=== PATIENT | male | born 1955 | race Caucasian/White ===

== ENCOUNTER 2020-05-09 09:05 | Emergency (ER) | payer OTHER, SELFPAY ==
--- NOTE | ~2020-05-09 | XR_ITS ---
EXAMINATION: XR wrist LT min 3V DATE: 05/09/2020 09:35 INDICATION: Bilateral wrist pain post fall TECHNIQUE: Posteroanterior, ulnar deviation, oblique, and lateral views of the left wrist were obtain ed. COMPARISON: none FINDINGS: Old healed distal left radial fracture with volar T plate and screw fixation. There is mild residual widening of the distal radioulnar joint. 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 No acute fracture. There is increased scapholunate angle consistent wit h dorsal intercalated segment instability (DISI). Mild chondrocalcinosis in the region of the triangu lar fibrocartilage complex. 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 Mild osteoa rthritis at the midcarpal, triscaphe and first carpal metacarpal joints. There is subtle dystrophic c alcification in the soft tissues volar to the left wrist and carpus there is asymmetric soft tissue s welling. IMPRESSION: 1. Old healed internally fixed distal left radial fracture and chronic nonunited ulnar styloid avulsi on fracture. No acute osseous abnormality. 2. 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 3. 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 Reviewed, dictated and finalized at location A. IMPRESSION: 1. Old healed internally fixed distal left radial fracture and chronic nonunite d ulnar styloid avulsion fracture. No acute osseous abnormality. 2. Increased scapholunate angle consistent with dorsal intercalated segment ins tability (DISI) and likely scapholunate ligament insufficiency. 3. 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
--- NOTE | ~2020-05-09 | XR_ITS ---
EXAMINATION: XR wrist RT min 3V DATE: 05/09/2020 09:34 INDICATION: Right wrist pain TECHNIQUE: Posteroanterior, ulnar deviation, oblique, and lateral views of the right wrist were obtai annika. COMPARISON: none FINDINGS: Bone alignment is normal. No acute fracture. Osseous excrescence at the dorsal aspect of the proximal carpal row which appears to arise from the lunate which could be either developmental or sequela of old healed fracture. There appears to be a subtle loose osteochondral body at the dorsal aspect of th e midcarpal joint on the lateral projection. Mild chondrocalcinosis at the ulnar side of the wrist martell int. Mild osteoarthritis at the midcarpal, triscaphe and first carpal metacarpal joints. IMPRESSION: 1. No acute osseous abnormality. 2. Suggestion of an old healed fracture of the dorsal aspect of the lunate. 3. Chondrocalcinosis and mild polyarticular osteoarthritis at the carpus Reviewed, dictated and finalized at location A.
--- NOTE | 2020-05-09 09:14 | ED.GENADULT ---
HPI - General Adult General Chief complaint: Extremity Injury, Upper Stated complaint: r/l wrist pain Time Seen by Provider: 05/09/20 09:14 Source: patient Mode of arrival: ambulatory Limitations: no limitations History of Present Illness HPI narrative: 64-year-old male patient presents to the [facility] with complaints of bilateral wrist pain for the past 3 days. Patient states on Thursday he tripped over his kids the bowen falling forward and using his hands outstretched to break his fall. Patient states he has fractured his left wrist about 15 years ago and did require surgery at that time. Patient denies taking anything for pain. Patient states when he is resting he has no pain however today when he went to go grab the coffee pot he noticed that he had some pain to the right wrist area. Patient denies any numbness or tingling to the fingers. Related Data Home Medications Medication Instructions Recorded Confirmed Unable to Obtain Home Medications 05/09/20 05/09/20 Allergies Allergy/AdvReac Type Severity Reaction Status Date / Time No Known Allergies Allergy Verified 05/09/20 09:17 Review of Systems Review of Systems: Narrative: CONSTITUTIONAL: Denies fever, chills, or sweats. EYES: Denies visual changes, redness, or discharge. ENT: Denies rhinorrhea, congestion, sore throat, or otalgia. CARDIOVASCULAR: Denies chest pain, palpitations, or edema. RESPIRATORY: Denies cough or dyspnea. GASTROINTESTINAL: Denies abdominal pain, nausea, vomiting, or diarrhea. GENITOURINARY: Denies dysuria or hematuria. SKIN: Denies rash or itching. MUSCULOSKELETAL: Denies back pain, joint pain, or myalgia. Positive bilateral wrist pain x3 days NEUROLOGIC: Denies headache, numbness, or weakness. PSYCHIATRIC: Denies anxiety or depression. COUNTS INCLUDE 234 BEDS AT THE [facility] Past Medical History Medical History (Updated 05/09/20 @ 09:50 by PRASANNA Fry) Arthritis Fractures Left wrist requiring surgery Social History Social History Gender identity (if verbalized by the patient): Male Comments At the time of my signature I agree with nursing past medical history, surgical, social, and family history. There is no relevant family history pertinent to the presenting complaint. Exam Narrative: Exam Narrative: GENERAL: Well-appearing, well-nourished, and in no acute distress. HEAD: Normocephalic, atraumatic. EYES: PERRLA and EOMI. ENT: Nares clear, no rhinorrhea or epistaxis. Mucous membranes moist. NECK: Supple. No lymphadenopathy CHEST: Clear to auscultation. No respiratory distress. HEART: Regular rate and rhythm. No murmur heard. Normal peripheral pulses. ABDOMEN: Soft, nontender, nondistended, normal active bowel sounds. EXTREMITIES: The R and L wrist is without obvious asymmetry or deformity when compared to the R and L wrist. Patient does have a little bit of bruising to the anterior side of the left wrist. Patient does have an old surgical wound noted and there is some swelling noted to the left wrist but unknown if that is chronic. Patient does have limited range of motion with flexion to the left wrist but states that that is not necessarily new due to his old injury. No overlying erythema or warmth. No bony crepitus or focal area of TTP. No scaphoid fullness or tenderness to direct palpation or axial load. Normal flex/extension of right wrist, normal bilateral ulnar/radial deviation. Motor/sensory function of ulnar, radial, median nerves intact. Ulnar and radial pulses intact. Negaitve Phalen's/Tinel's sign. Negative Cayla test. SKIN: Warm, dry, no rash. Patient does have a small wound noted to the auricle portion of the left ear. Does appear to be a skin tear. NEURO: No focal deficits. Alert and oriented x3. Course Reevaluation(s) Reevaluation #1: Reevaluated patient and notified him that the x-rays did not show any new fractures to either one of the wrist at this time. Discussed with
[2020-05-09 09:23] VITALS: BP 174/76; PULSE 75; RESP 18; TEMP 35.9; O2SAT 100
[2020-05-09] MEDS: TETANUS,DIPHTHERIA,AC PERTUSSIS ADULT (0.5 ML) BOOSTRIX IM (09:46)
== END 2020-05-09 09:52 | disposition home or self-care (01) ==
PROVIDERS: Emergency Provider Nurse Practitioner Family
DX: S63.502A Unspecified sprain of left wrist, initial encounter (principal); W03.XXXA Other fall on same level due to collision with another person, initial encounter; S63.501A Unspecified sprain of right wrist, initial encounter; S81.812A Laceration without foreign body, left lower leg, initial encounter; Z23 Encounter for immunization; M19.90 Unspecified osteoarthritis, unspecified site
CPT/HCPCS: 73110; 90471; 90715; 99214; G0463

== ENCOUNTER 2020-09-15 16:57 | Emergency (ER) | payer OTHER, SELFPAY ==
[2020-09-15 17:14] VITALS: BP 151/64; PULSE 83; RESP 18; TEMP 36.9; O2SAT 100
--- NOTE | 2020-09-15 17:49 | ED.SKABFB ---
HPI - Skin/Abscess/Foreign Bdy General Chief complaint: Skin/Abscess/Foreign Body Stated complaint: Ingrown toenail,infected fingers Time Seen by Provider: 09/15/20 17:46 Source: patient and RN notes reviewed Mode of arrival: ambulatory Limitations: no limitations History of Present Illness HPI narrative: Patient presents today complaining of of redness and swelling to the left fourth toe. Since yesterday and a few scabbed sores to the right second and fifth fingers. Denies any current pain. He has tried no [id number] treatment prior to arrival. Denies any history of abscesses, boils, staph infections. MD complaint: abscess/boil Related Data Allergies Allergy/AdvReac Type Severity Reaction Status Date / Time No Known Allergies Allergy Verified 09/15/20 17:19 Review of Systems Review of Systems: CONSTITUTIONAL: Denies body aches, fever, chills, or sweats. EYES: Denies visual changes, redness, or discharge. ENT: Denies rhinorrhea, congestion, sore throat, or otalgia. CARDIOVASCULAR: Denies chest pain, palpitations, or edema. RESPIRATORY: Denies cough or dyspnea. GASTROINTESTINAL: Denies abdominal pain, nausea, vomiting, or diarrhea. GENITOURINARY: Denies dysuria or hematuria. SKIN: + Toe swelling and redness, finger sores MUSCULOSKELETAL: Denies back pain, joint pain, or myalgia. NEUROLOGIC: Denies headache, numbness, tingling, or weakness. PSYCH: Denies depression or anxiety. [facility] Past Medical History Medical History Arthritis Fractures Left wrist requiring surgery Social History Social History Gender identity (if verbalized by the patient): Male Comments At time of signature, I have reviewed and agree with nursing past medical, surgical, social and family history unless otherwise noted. Please see nursing chart for further information. There is no relevant family history pertinent to the presenting complaint Exam Narrative: GENERAL: Well-appearing, well-nourished, and in no acute distress. HEAD: Normocephalic, atraumatic. EYES: EOMI. No redness or drainage. Conjunctivae normal. ENT: Mucous membranes pink and moist. NECK: Normal AROM. CHEST: No respiratory distress. EXTREMITIES: Left fourth toe: Moderate swelling and erythema to the entire toe. Purulent material seen under the skin and toenail, consistent with paronychia. Few scabbed lesions with scant surrounding pinkness to the dorsums of the right second and fifth fingers. SKIN: Warm, dry, no rash. Capillary refill normal. Normal skin turgor. NEURO: No focal deficits. Alert and oriented x3. Gait steady. PSYCH: Normal affect. No signs of depression or anxiety. Course Vital Signs Vital signs: Vital Signs Temperature 98.4 F 09/15/20 17:14 Pulse Rate 83 09/15/20 17:14 Respiratory Rate 18 09/15/20 17:14 Blood Pressure 151/64 H 09/15/20 17:14 Pulse Oximetry 100 09/15/20 17:14 Temperature 98.4 F 09/15/20 17:14 Pulse Rate 83 09/15/20 17:14 Respiratory Rate 18 09/15/20 17:14 Blood Pressure 151/64 H 09/15/20 17:14 Pulse Oximetry 100 09/15/20 17:14 Reviewed. Pt has been instructed to follow up with his PCP regarding his elevated blood pressure today. Procedures Abscess I/D lower extremity: Date of Incision: 09/15/20 Time of Incision: 17:58 Side (if applicable): left (Fourth toe paronychia) Local Anesthetic: none Technique: other (Incised with 18-gauge needle tip) Irrigation: No Packing used?: none I&D Results: Pus MDM - Skin/Abscess/Foreign Bdy Differential Diagnosis Differential diagnosis: Likely abscess of skin or subcutaneous tissue, cellulitis, eczema, insect bites, impetigo and other (Paronychia) Critical Care Time Critical Care Time Critical Care Time: No Discharge Plan Discharge Clinical Impression: Paronychia of fou
== END 2020-09-15 18:10 | disposition home or self-care (01) ==
PROVIDERS: Emergency Provider Nurse Practitioner
DX: L03.032 Cellulitis of left toe (principal); M19.90 Unspecified osteoarthritis, unspecified site
CPT/HCPCS: 10060; 99213; G0463